=== PATIENT | male | born 1955 | race Caucasian/White ===

== ENCOUNTER 2019-12-15 08:20 | Day surgery (SDC) | payer MEDICARE, OTHER ==
--- NOTE | 2019-12-12 10:28 | HP ---
DATE OF SURGERY: 12/15/2019 ANTICIPATED PROCEDURE: Umbilical herniorrhaphy. HISTORY OF PRESENT ILLNESS: The patient has moderate sized symptomatic umbilical hernia. He does have diastasis rectus that is not being repaired but at the belly button just at the upper edge is umbilical hernia. PAST MEDICAL HISTORY: ALLERGIES: NKDA. RAGWEED. MEDICATIONS: Omeprazole, meloxicam. PAST SURGICAL HISTORY: Appendectomy. SOCIAL HISTORY: Negative. FAMILY HISTORY: Negative. REVIEW OF SYSTEMS: Hypertension controlled. PHYSICAL EXAMINATION: VITAL SIGNS: Normal. CHEST: Clear. COR: Regular. IMPRESSION: Umbilical hernia. PLAN: Repair.
[2019-12-15] MEDS ORDERED: Lactated Ringers 0 ML IV ONE (08:29)
[2019-12-15] MEDS ORDERED: CEFAZOLIN 2 GM-D5W BAG** 2 GM/50 ML ML IV ONE (08:29)
[2019-12-15] MEDS ORDERED: Lactated Ringers 1,000 ML IV SCH (08:30)
[2019-12-15] MEDS ORDERED: Lactated Ringers 1,000 ML IV ONE (08:35)
[2019-12-15] MEDS ORDERED: CEFAZOLIN 2 GM-D5W BAG** 2 GM/50 ML ML IV SCH (09:00)
[2019-12-15] MEDS ORDERED: KEFZOL 1 GM ONE (09:54)
[2019-12-15] MEDS ORDERED: Sensorcaine 0.25% 10 ML ONE (09:54)
[2019-12-15] MEDS ORDERED: DIPRIVAN 200 MG/20 ML IV ONE (11:07)
[2019-12-15] MEDS ORDERED: Versed 2 MG/2 ML Injection ONE (11:07)
[2019-12-15] MEDS ORDERED: SUBLIMAZE 250 MCG/5 ML ONE (11:07)
[2019-12-15] MEDS ORDERED: Xylocaine-Mpf 2% 5 Ml Vial ONE (11:07)
[2019-12-15] MEDS ORDERED: Ephedrine Sulfate 50 MG/ML ONE (11:26)
[2019-12-15] MEDS ORDERED: Zemuron 100 MG/10 ML ONE (11:42)
[2019-12-15] MEDS ORDERED: ROBINUL ONE (11:43)
[2019-12-15 14:27] VITALS: BP 155/97; PULSE 53; O2SAT 95
--- NOTE | 2019-12-16 09:45 | OP ---
SURGERY DATE/TIME: 12/15/2019 1104 PREOPERATIVE DIAGNOSIS: Umbilical hernia. POSTOPERATIVE DIAGNOSIS: Umbilical hernia. PROCEDURE: Primary repair. SURGEON: Agus Bui M.D. ANESTHESIA: General. COMPLICATIONS: None. CONDITION: Stable. INDICATION: The patient has symptomatic umbilical hernia. DESCRIPTION OF PROCEDURE: Transumbilical approach, transinfraumbilical approach. 3.5 cm incision. 0.25% Marcaine. The fascial edge is defined. I believe there certainly is diastasis in the upper abdomen also. Five sutures of 0 Prolene were placed and then subsequently tied down. Good approximation and hemostasis. Skin closed with 4-0 Vicryl and Steri-Strips. The patient tolerated the procedure satisfactorily.
== END 2019-12-15 13:45 | disposition home or self-care (01) ==
LOC: SDC 08:20
PROVIDERS: ATTEND Surgery
DX: K42.9 Umbilical hernia without obstruction or gangrene (principal); M62.08 Separation of muscle (nontraumatic), other site; I10 Essential (primary) hypertension; Z79.899 Other long term (current) drug therapy
CPT/HCPCS: J0690; J2250; J2704; J3010